=== PATIENT | male | born 1995 | race Caucasian/White ===

== ENCOUNTER 2018-03-02 16:19 | Emergency (ER) | payer OTHER ==
[2018-03-02] MEDS: IBUPROFEN 600 MG TAB PO (17:45)
== END 2018-03-02 17:59 | disposition home or self-care (01) ==
LOC: M ED 16:19
DX: S93.402A Sprain of unspecified ligament of left ankle, initial encounter (principal); W18.2XXA Fall in (into) shower or empty bathtub, initial encounter; Y92.89 Other specified places as the place of occurrence of the external cause
CPT/HCPCS: 73610